=== PATIENT | female | born 1985 | race Asian ===

== ENCOUNTER → 2025-05-22 09:08 | Outpatient (REF) | payer OTHER, SELFPAY | LOC: HWRAD 09:08 | PROVIDERS: ATTENDING PHYSICIAN Family Medicine; FAMILY PHYSICIAN Physician Assistant Medical | DX: M79.89 Other specified soft tissue disorders (principal) | CPT/HCPCS: 76604 ==

== ENCOUNTER 2025-08-15 07:00 | Day surgery (SDC) | payer OTHER, SELFPAY ==
[2025-08-15 07:07] VITALS: BMI 23.7
[2025-08-15] MEDS: TYLENOL 1000 MG PO (07:09)
--- NOTE | 2025-08-15 07:16 | W.SUR.PREOP ---
Pre-Operative Surgical Note
-
I have examined this patient prior to the performance of the scheduled procedure.
The patient's condition is unchanged from the time of the current History and
Physical and the patient is able to undergo the scheduled procedure.
--- NOTE | 2025-08-15 07:16 | HP.FOC2 ---
Focused History & Physical
Chief Complaint
HPI:
Chief Complaint: Right upper back lipoma
HPI / Indication for Planned Procedure: This is a 39-year-old female who presents with a right upper back lipoma we will perform an open excision of a right upper back lipoma.
Relevant Past Medical History: Negative
Relevant Social History: Negative
Relevant Family History: Negative
Relevant Past Surgical History: Negative
Review of Systems
Review of Pertinent Systems: All Systems Negative
Medication
See Medication form for detailed medications: Yes
Medication List (including Herbals & OTC):
Norethindrone-Estradiol Patch 1 patch topical WEEKLY 08/14/25
Medications Reviewed: Yes
Allergies and Reactions
Patient has Allergies: No
Noted Allergies and Reactions:
Allergy/AdvReac Type Severity Reaction Status Date / Time
No Known Allergies Allergy Verified 08/15/25 07:06
Pertinent Physical Exam
All Other Systems: Negative
Head/Neck: Normal
Diagnosis / Assessment
This is a 39-year-old female who presents with a right upper back lipoma we will perform an open excision of a right upper back lipoma.
Plan / Procedure
This is a 39-year-old female who presents with a right upper back lipoma we will perform an open excision of a right upper back lipoma.
Anesthesia/Sedation to be done by Anesthesia Provider: Yes
[2025-08-15] MEDS: NORMOSOL-R/PLASMALYTE-A 1000 IV (07:18)
[2025-08-15 07:21] VITALS: BP 130/72; BMI 23.7
[2025-08-15 08:20] VITALS: BP 90/58
--- NOTE | 2025-08-15 08:23 | W.IMMPOSTOP ---
Surgical Immed Post Op Note
-
Primary Surgeon: Wyatt Sanz MD
Assisting Surgeon: None
Pre-op Diagnosis: Right upper back lipoma
Post-op Diagnosis: Intramuscular right upper back lipoma
Procedure Performed: Excision of an intramuscular right upper back lipoma
Anesthesia Type: General
Specimen / Cultures: Intramuscular right upper back lipoma (8.5 x 4.5 x 1.5 cm)
Estimated Blood Loss: 3 cc
Complications: None
Operative Findings: Intramuscular right upper back lipoma encapsulated but scalloped. Removed entirely. 8.5 x 4.5 x 1.5 cm.
--- NOTE | 2025-08-15 08:25 | OR.RPT ---
Operative Report
Operative Report
Patient Name: Jillian Velasquez
: 1985
Date of Operation: 08/15/2025
Preoperative Diagnosis: Right upper back lipoma
Postoperative Diagnosis: Intramuscular right upper back lipoma
Procedure(s):
Excision of an intramuscular lipoma of the right upper back
Surgeon(s):
Dr. Sanz
Exercise Equipment Specialist(s):
CLIFF Lieberman
Anesthesia: MAC
Estimated Blood Loss: 3 cc
Urine Output: None
Drains/Lines/Implants: None
Specimens:
1. Lipoma
Indication for surgery:
This is a 39-year-old female with a lump on her back that she has known about for several years and has become more symptomatic. After evaluation in the office they were diagnosed with a lipoma. After discussion of risk benefits and alternatives
they elected and were consented for surgery.
Operative Findings: Intramuscular right upper back lipoma encapsulated but scalloped. Removed entirely. 8.5 x 4.5 x 1.5 cm.
Details of the operation:
The patient was brought to the operating room a placed in the left lateral decubitus position. After appropriate sedation by anesthesia, the area of the back was prepped and draped in the usual fashion. A linear incision over natural skin line was
made over the mass and carried down through the subcutaneous tissue and underlying fascia. An intramuscular lipoma was identified and found to be encapsulated. The lipoma was freed circumferentially taking care not to come across the many
interdigitating extensions that it had. The specimen which measured roughly 8.5 x 4.5 x 1.5 cm was passed off the field. The cavity was irrigated and hemostasis was achieved. The space was closed with interrupted 3-0 Vicryl sutures. The dermis
was then approximated using interrupted 3-0 Vicryl sutures followed by a running 4-0 monocryl, followed by dermabond. All counts were correct at the end of procedure. The patient was then transferred to the PACU for recovery.
I was the attending physician and performed the procedure with assistance of the PA above. The assistance of CLIFF Lieberman was required due to the complexity of the procedure. During the procedure Lana assisted with retraction, resection, and
closure of the wound. I was present for all portions of the case, excluding skin closure.
Wyatt Sanz MD
[2025-08-15 08:30] VITALS: BP 91/54
[2025-08-15 08:46] VITALS: BP 97/70
[2025-08-15 09:00] VITALS: BP 100/60
== END 2025-08-15 09:15 | disposition home or self-care (01) ==
LOC: SDS 07:00
PROVIDERS: ATTENDING PHYSICIAN Surgery
DX: D17.1 Benign lipomatous neoplasm of skin and subcutaneous tissue of trunk (principal)
CPT/HCPCS: 21931; 88304